=== PATIENT | female | born 1945 | race Asian ===

== ENCOUNTER 2021-04-20 11:14 | Inpatient (IN) | payer OTHER ==
[~2021-04-20] VITALS: Ht 154.9 cm; Wt 70.3 kg
--- NOTE | 2021-04-20 11:14 | NUR ---
PT BIBRA 41 FROM HOME C/O L HIP PAIN S/P GLF. PT IS AAOX4 BAHAMIAN SPEAKING ONLY, NOT IN RESPIRATORY DISTRESS, HOOKED TO LICENSED CERTIFIED ORTHOTIST, KEPT RESTED AND COMFORTABLE. WILL CONTINUE TO MONITOR.
--- NOTE | 2021-04-20 11:21 | NUR ---
SEEN AND EXAMINED BY .
--- NOTE | 2021-04-20 11:37 | NUR ---
ER PHLEB AT BEDSIDE FOR BLOOD DRAW.
[2021-04-20] MEDS ORDERED: MORPHINE SULFATE INJ 2 MG/ML DISP.SYRIN ONE ×2 (11:38→17:30)
[2021-04-20] MEDS ORDERED: ONDANSETRON HCL/PF 4 MG/2 ML VIAL ONE (11:38)
[2021-04-20] MEDS ORDERED: LOSA25TA27 PO (11:39)
[2021-04-20] MEDS ORDERED: CITA10TA9 PO (11:39)
[2021-04-20] MEDS ORDERED: ASPI-1420 PO (11:39)
[2021-04-20] MEDS ORDERED: INSU100I26 SQ (11:39)
[2021-04-20] MEDS ORDERED: METF-442 PO (11:39)
[2021-04-20] MEDS ORDERED: DICL100G34 TP (11:39)
[2021-04-20] MEDS ORDERED: SITA100T PO (11:39)
[2021-04-20] MEDS ORDERED: PIOG30TA10 PO (11:39)
[2021-04-20] MEDS ORDERED: ATOR10TA PO (11:39)
[2021-04-20] MEDS ORDERED: MELO-107 PO (11:39)
[2021-04-20 11:42] LABS: BASOPHILS % (AUTO) 0.5 % (0.0-2.0); EOSINOPHILS % (AUTO) 1.6 % (0.0-6.0); HEMATOCRIT 37 % (33-45); LYMPHOCYTES # (AUTO) 1.1 K/uL (0.8-4.8); LYMPHOCYTES % (AUTO) 14.3 % (20.0-44.0); MEAN CORPUSCULAR HGB CONC 33 g/dl (31.0-36.0); MEAN CORPUSCULAR VOLUME 85 fL (82-100); MONOCYTES # (AUTO) 0.6 K/uL (0.1-1.30); MONOCYTES % (AUTO) 7.7 % (2.0-12.0); NEUTROPHILS # (AUTO) 5.9 K/uL (1.8-8.9); NEUTROPHILS % (AUTO) 75.9 % (43.0-81.0); PLATELET COUNT (AUTO) 160 K/uL (150-450); RED BLOOD CELL COUNT(AUTO) 4.31 MIL/uL (4.0-5.2); WHITE BLOOD COUNT (AUTO) 7.7 K/uL (4.3-11.0)
[2021-04-20 11:59] LABS: CALCIUM, SERUM 9.1 mg/dL (8.5-10.1); CARBON DIOXIDE 26 mmol/L (21-32); CHLORIDE 105 mmol/L (98-107); CREATININE 1.3 mg/dL (0.6-1.3); GLUCOSE 244 mg/dL (74-106); POTASSIUM 3.7 mmol/L (3.5-5.1); SODIUM SERUM 141 mmol/L (136-145); UREA NITROGEN, BLOOD 28 mg/dL (7-18)
[2021-04-20] MEDS ORDERED: MORPHINE SULFATE INJ 2 MG/ML DISP.SYRIN IV ONE ×2 (12:00→17:30)
[2021-04-20] MEDS ORDERED: ONDANSETRON HCL/PF 4 MG/2 ML VIAL IV ONE (12:00)
--- NOTE | 2021-04-20 12:00 | NUR ---
OPTICAL INSTRUMENT REPAIRER AT BEDSIDE FOR XRAY.
--- NOTE | 2021-04-20 15:06 | NUR ---
DARREN ESPINAL FOR CONSULT.
--- NOTE | 2021-04-20 15:50 | NUR ---
SECOND PAGE FOR MELONY JOYCE, AWAITING CALL BACK FROM PROVIDER.
--- NOTE | 2021-04-20 16:56 | NUR ---
THIRD PAGE FOR MELONY JOYCE.
--- NOTE | 2021-04-20 16:58 | NUR ---
SPOKE TO MELONY JOYCE, TEXTING EUSEBIO JOYCE TO CALL US BACK.
--- NOTE | 2021-04-20 17:04 | NUR ---
CALLED NURSING SUP FOR M/S BED.
--- NOTE | 2021-04-20 17:25 | NUR ---
NURSING SUP GAVE M/S BED 325-1. NURSE NAME RAN.
--- NOTE | 2021-04-20 17:29 | NUR ---
REPORT GIVEN TO KETTY JEFFERY FOR CATRACHITO.
[2021-04-20] MEDS ORDERED: DEXTROSE 50%-WATER 50 ML DISP.SYRIN IV PRN (17:30)
[2021-04-20] MEDS ORDERED: Z GUARD REMEDY 2 OZ OINT TP PRN (17:30)
[2021-04-20] MEDS ORDERED: MAGNESIUM HYDROXIDE 30 ML UDC PO PRN (17:30)
[2021-04-20] MEDS ORDERED: ONDANSETRON HCL/PF 4 MG/2 ML VIAL IVP PRN (17:30)
[2021-04-20] MEDS ORDERED: MAG HYDROX/AL HYDROX/SIMETH 30 ML UDC PO PRN (17:30)
[2021-04-20] MEDS ORDERED: ACETAMINOPHEN 325 MG TABLET PO PRN (17:30)
[2021-04-20] MEDS ORDERED: ZOLPIDEM TARTRATE 5 MG TABLET PO PRN (17:30)
[2021-04-20] MEDS: ENOXAPARIN SODIUM 30 MG/0.3 ML DISP.SYRIN SQ SCH (18:00)
--- NOTE | 2021-04-20 18:54 | NUR ---
RN MS NOTES RECEIVED PT FROM E.R. STAFF VIA RACHEL, PT IS AWAKE, ALERT AND ORIENTED, CITIZEN OF [place] SPEAKING BUT UNDERSTANDS SIMPLE [place], NO SIGN OF PAIN, NOT IN DISTRESS, TOLERATES ROOM AIR, ASSISTED TO BED, MADE COMFORTABLE, ROOM SET UP ORIENTATION PROVIDED TO PT, FAMILY CAME AND VISITED PT, KEPT COMFORTABLE, VITALS TAKEN AND RECORDED.
[2021-04-20 18:56] VITALS: BP 124/75
--- NOTE | 2021-04-20 19:00 | NUR ---
RN MS NOTES LOVENOX NOT GIVEN, ANTICIPATING POSSIBLE SURGERY IN AM.
[2021-04-20] MEDS: BLOOD SUGAR DIAGNOSTIC 1 EACH STRIP IN SCH ×2 (19:13→22:16)
[2021-04-20] MEDS: METFORMIN 850 MG TABLET PO SCH (19:13)
--- NOTE | 2021-04-20 19:30 | NUR ---
MS/RN ADMITTING NOTE PATIENT ADMITTED AT APPROX. 1845 WITH DX OF BILATERAL SACRAL FRACTURES. PATIENT IS ALERT AND ORIENTED X 4. PRIMARILY SAMOAN SPEAKING BUT UNDERSTANDS SOME HUNGARIAN. FAMILY CURRENTLY AT BEDSIDE. PATIENT IS ON ROOM AIR WITH NO S/SX OF RESPIRATORY DISTRESS NOTED. NO C/O PAIN AT THIS TIME. IV ACCESS TO RIGHT FOREARM #20G INTACT, PATENT AND SALINE LOCKED. PATIENT IS ON CCHO DIET WITH NO S/SX OF ASPIRATION NOTED. JONES CATHETER IN PLACE DRAINING CLEAR, YELLOW URINE TO GRAVITY. SKIN CHECK PERFORMED ON ADMISSION WITH NO SKIN ISSUES NOTED. PATIENT ORIENTED TO ROOM, CALL LIGHT AND UNIT. CALL LIGHT WITHIN REACH. ASPIRATION, FALL AND SAFETY PRECAUTIONS MAINTAINED. WILL CONTINUE TO MONITOR.
[2021-04-20 20:00] VITALS: BP 123/77
[2021-04-20] MEDS: HYDROCODONE/APAP 5/325MG TABLET PO PRN (20:04)
[2021-04-20] MEDS: ATORVASTATIN 10 MG TABLET PO SCH (22:16)
[2021-04-20] MEDS: INSULIN REGULAR, HUMAN 100 UNIT/ML 3 ML VIAL SQ PRN (22:22)
[2021-04-21] MEDS: HYDROCODONE/APAP 5/325MG TABLET PO PRN ×3 (01:17→11:51)
[2021-04-21 06:11] LABS: BASOPHILS % (AUTO) 0.3 % (0.0-2.0); EOSINOPHILS % (AUTO) 4.7 % (0.0-6.0); HEMATOCRIT 34 % (33-45); HEMOGLOBIN 11.1 g/dL (11.5-14.8); LYMPHOCYTES # (AUTO) 1.7 K/uL (0.8-4.8); MEAN CORPUSCULAR HGB CONC 33 g/dl (31.0-36.0); MEAN CORPUSCULAR VOLUME 85 fL (82-100); MONOCYTES # (AUTO) 0.8 K/uL (0.1-1.30); MONOCYTES % (AUTO) 11.7 % (2.0-12.0); NEUTROPHILS # (AUTO) 4.2 K/uL (1.8-8.9); NEUTROPHILS % (AUTO) 59.3 % (43.0-81.0); PLATELET COUNT (AUTO) 162 K/uL (150-450); RED BLOOD CELL COUNT(AUTO) 3.99 MIL/uL (4.0-5.2)
[2021-04-21 06:49] LABS: CALCIUM, SERUM 8.8 mg/dL (8.5-10.1); CARBON DIOXIDE 25 mmol/L (21-32); CHLORIDE 104 mmol/L (98-107); CREATININE 1.5 mg/dL (0.6-1.3); GLUCOSE 133 mg/dL (74-106); MAGNESIUM 1.9 mg/dL (1.8-2.4); PHOSPHORUS 5.5 mg/dL (2.5-4.9); POTASSIUM 3.6 mmol/L (3.5-5.1); SODIUM SERUM 139 mmol/L (136-145); UREA NITROGEN, BLOOD 44 mg/dL (7-18)
[2021-04-21 06:53] LABS: CHOLESTEROL 139 mg/dL (<200); HDL CHOLESTEROL 43 mg/dL (40-60); LDL 76 mg/dL (0-99); THYROID STIMULATING HORMONE 3.138 uIU/mL (0.358-3.74); TRIGLYCERIDES 118 mg/dL (30-150)
[2021-04-21] MEDS: INSULIN REGULAR, HUMAN 100 UNIT/ML 3 ML VIAL SQ PRN ×2 (07:03→21:21)
[2021-04-21] MEDS: BLOOD SUGAR DIAGNOSTIC 1 EACH STRIP IN SCH ×4 (07:06→21:18)
[2021-04-21 08:00] VITALS: BP 100/63
[2021-04-21] MEDS: ASPIRIN EC 81 MG TABLET.DR PO SCH (08:43)
[2021-04-21] MEDS: CITALOPRAM HYDROBROMIDE 10 MG TABLET PO SCH (08:43)
[2021-04-21] MEDS: PANTOPRAZOLE 40 MG TABLET.DR PO SCH (08:43)
[2021-04-21] MEDS: PIOGLITAZONE HCL 15 MG TABLET PO SCH (08:44)
[2021-04-21] MEDS: METFORMIN 850 MG TABLET PO SCH ×2 (08:44→16:52)
[2021-04-21] MEDS: LINAGLIPTIN 5 MG TABLET PO SCH (08:44)
[2021-04-21] MEDS: INSULIN GLARGINE, 100 UNIT/ML CARTRIDGE SQ SCH (08:51)
[2021-04-21] MEDS ORDERED: LOSARTAN POTASSIUM 25 MG TABLET PO SCH (09:00)
--- NOTE | 2021-04-21 19:30 | NUR ---
RN NOTES PATIENT RECEIVED ALERT AND ORIENTED X 4. PRIMARILY ANGUILLAN SPEAKING BUT UNDERSTANDS SOME ESTONIAN. FAMILY CURRENTLY AT BEDSIDE. PATIENT IS ON ROOM AIR WITH NO S/SX OF RESPIRATORY DISTRESS NOTED. NO C/O PAIN AT THIS TIME. IV ACCESS TO RIGHT FOREARM #20G INTACT, PATENT AND SALINE LOCKED. JONES CATHETER IN PLACE DRAINING CLEAR, YELLOW URINE TO GRAVITY.CALL LIGHT WITHIN REACH. ASPIRATION, FALL AND SAFETY PRECAUTIONS MAINTAINED. WILL CONTINUE TO MONITOR.
[2021-04-21 20:00] VITALS: BP 116/73
[2021-04-21] MEDS: ENOXAPARIN SODIUM 30 MG/0.3 ML DISP.SYRIN SQ SCH ×2 (21:00→21:11)
[2021-04-21] MEDS: ATORVASTATIN 10 MG TABLET PO SCH (21:08)
[2021-04-22] MEDS: IV 1/2NS 1000 ML 1,000 ML IV PRN ×2 (02:22→18:24)
[2021-04-22] MEDS: BLOOD SUGAR DIAGNOSTIC 1 EACH STRIP IN SCH ×4 (06:40→21:58)
[2021-04-22] MEDS: INSULIN REGULAR, HUMAN 100 UNIT/ML 3 ML VIAL SQ PRN ×3 (06:41→22:02)
--- NOTE | 2021-04-22 06:48 | NUR ---
RN NOTES PATIENT ALERT AND ORIENTED X 4. PRIMARILY ANGUILLAN SPEAKING BUT UNDERSTANDS SOME SAMI. FAMILY CURRENTLY AT BEDSIDE. PATIENT IS ON ROOM AIR WITH NO S/SX OF RESPIRATORY DISTRESS NOTED. NO C/O PAIN AT THIS TIME. IV ACCESS TO RIGHT FOREARM #20G INTACT, PATENT AND SALINE LOCKED. JONES CATHETER IN PLACE DRAINING CLEAR, YELLOW URINE TO GRAVITY.CALL LIGHT WITHIN REACH. ASPIRATION, FALL AND SAFETY PRECAUTIONS MAINTAINED. WILL ENDORSE CARE O DAY SHIFT NURSE.
--- NOTE | 2021-04-22 07:43 | NUR ---
MS/RN OPENING NOTES RECEIVED PATIENT IN BED, ALERT AND ORIENTED X 4. PRIMARILY AFGHAN SPEAKING BUT UNDERSTANDS SOME SYRIAC. STABLE ON ROOM AIR WITH NO S/SX OF RESPIRATORY DISTRESS NOTED. NO C/O PAIN AT THIS TIME. IV ACCESS TO RIGHT FOREARM #20G INTACT WITH 1/2 NS RUNNING AT 75ML/HR. JONES CATHETER IN PLACE DRAINING CLEAR, YELLOW URINE TO GRAVITY. CALL LIGHT WITHIN REACH. ASPIRATION, FALL AND SAFETY PRECAUTIONS MAINTAINED. WILL CONTINUE TO MONITOR PATIENT.
[2021-04-22 08:00] VITALS: BP 100/46
[2021-04-22] MEDS: PIOGLITAZONE HCL 15 MG TABLET PO SCH (08:53)
[2021-04-22] MEDS: LINAGLIPTIN 5 MG TABLET PO SCH (08:54)
[2021-04-22] MEDS: ASPIRIN EC 81 MG TABLET.DR PO SCH (08:54)
[2021-04-22] MEDS: CITALOPRAM HYDROBROMIDE 10 MG TABLET PO SCH (08:54)
[2021-04-22] MEDS: PANTOPRAZOLE 40 MG TABLET.DR PO SCH (08:54)
[2021-04-22] MEDS: HYDROCODONE/APAP 5/325MG TABLET PO PRN ×2 (08:55→19:21)
[2021-04-22] MEDS ORDERED: METFORMIN 500 MG TABLET PO SCH (09:00)
[2021-04-22] MEDS: INSULIN GLARGINE, 100 UNIT/ML CARTRIDGE SQ SCH (09:00)
--- NOTE | 2021-04-22 09:03 | NUR ---
MS/RN NOTES- METFORMIN CALLED PHARMACY. METFORMIN STOCK ON HAND IS 850MG, PATIENT NEEDS 1,000MG. PER PHARMACY, THEY WILL SEND A METFORMIN 500MG/TAB IN THE UNIT. RN WILL RETURN THE PREVIOUS 850MG THAT WAS TAKEN FROM THE [facility] AND WILL WAIT FOR THE 500MG DOSE.
[2021-04-22] MEDS ORDERED: METFORMIN 500 MG TABLET ONE (09:10)
--- NOTE | 2021-04-22 15:06 | NUR ---
MS/RN NOTES URINE SPECIMEN COLLECTED VIA JNOES CATHETER AND SPECIMEN PLACED ON THE FRIDGE. CALLED LABORATORY THAT SPECIMEN IS READY FOR COLLECTION. LAB SAID MEASUREMENT SUPERINTENDENT WILL COME BY AND PICK IT UP.
[2021-04-22 16:22] LABS: BILIRUBIN,URINE NEGATIVE (NEGATIVE); COLOR,URINE YELLOW (YELLOW); LEUKOCYTE ESTERASE ,URINE TRACE (NEGATIVE); NITRITE, URINE NEGATIVE (NEGATIVE); PROTEIN,URINE NEGATIVE (NEGATIVE); UGLUCOSE NEGATIVE (NEGATIVE); UROBILINOGEN,URINE 0.2 EU/dL (0.2)
[2021-04-22 16:35] LABS: RBC,URINE 21-50 /HPF (0-2)
[2021-04-22 16:36] LABS: BACTERIA,URINE RARE /HPF (None Seen); MUCUS,URINE Few /LPF (None Seen); SQUAMOUS EPITHELIAL CELL,UR 0-2 /HPF (None Seen)
[2021-04-22 17:11] LABS: CREATININE, URINE 49.7 MG/DL (30.0-125.0)
--- NOTE | 2021-04-22 18:53 | NUR ---
MS/RN CLOSING NOTES PATIENT IN BED, ALERT AND ORIENTED X 4. PRIMARILY MACEDONIAN SPEAKING BUT UNDERSTANDS SOME SLOVAK. DAUGHTER AT BEDSIDE. STABLE ON ROOM AIR WITH NO S/SX OF RESPIRATORY DISTRESS NOTED. NO C/O PAIN AT THIS TIME. IV ACCESS TO RIGHT FOREARM #20G INTACT WITH 1/2 NS RUNNING AT 75ML/HR. JONES CATHETER IN PLACE DRAINING CLEAR, YELLOW URINE TO GRAVITY. CALL LIGHT WITHIN REACH. ASPIRATION, FALL AND SAFETY PRECAUTIONS MAINTAINED. WILL ENDORSE TO THE NEXT SHIFT FOR CATRACHITO.
--- NOTE | 2021-04-22 19:29 | NUR ---
RN NOTES PATIENT IN BED, ALERT AND ORIENTED X 4. PRIMARILY BELARUSIAN SPEAKING BUT UNDERSTANDS SOME JAPANESE. DAUGHTER AT BEDSIDE. STABLE ON ROOM AIR WITH NO S/SX OF RESPIRATORY DISTRESS NOTED. CO REPORTING 7/10 PAIN PRN NORCO 5-325 MG GIVEN WILL REASSES PAIN LEVEL.. IV ACCESS TO RIGHT FOREARM #20G INTACT WITH 1/2 NS RUNNING AT 75ML/HR. JONES CATHETER IN PLACE DRAINING CLEAR, YELLOW URINE TO GRAVITY. CALL LIGHT WITHIN REACH. ASPIRATION, FALL AND SAFETY PRECAUTIONS MAINTAINED. WILL CONTINUE TO MONITOR.
[2021-04-22 20:20] VITALS: BP 150/78
[2021-04-22] MEDS: ATORVASTATIN 10 MG TABLET PO SCH (21:50)
[2021-04-22] MEDS: ENOXAPARIN SODIUM 30 MG/0.3 ML DISP.SYRIN SQ SCH (21:51)
[2021-04-23] MEDS: IV 1/2NS 1000 ML 1,000 ML IV PRN (04:13)
[2021-04-23] MEDS: HYDROCODONE/APAP 5/325MG TABLET PO PRN ×3 (04:43→17:33)
--- NOTE | 2021-04-23 05:01 | NUR ---
RN NOTES PT STATED SHE WANTED PAIN MEDICINE BUT ONCE AT BEDSIDE PT CHANGED HER MIND.MEDICATION OPENED OUT OF PACKED CANNOT BE RETURNED TO [facility] WITH Johanna HDEZ. WILL CONTINUE TO MONITOR.
[2021-04-23] MEDS: BLOOD SUGAR DIAGNOSTIC 1 EACH STRIP IN SCH ×2 (06:45→11:59)
--- NOTE | 2021-04-23 06:59 | NUR ---
RN NOTES PATIENT IN BED, ALERT AND ORIENTED X 4. PRIMARILY COOK ISLANDER SPEAKING BUT UNDERSTANDS SOME ITALIAN. DAUGHTER AT BEDSIDE. STABLE ON ROOM AIR WITH NO S/SX OF RESPIRATORY DISTRESS NOTED.IV ACCESS TO RIGHT FOREARM #20G INTACT WITH 1/2 NS RUNNING AT 75ML/HR. JONES CATHETER IN PLACE DRAINING CLEAR, YELLOW URINE TO GRAVITY. CALL LIGHT WITHIN REACH. ASPIRATION, FALL AND SAFETY PRECAUTIONS MAINTAINED. WILL ENDORSE CARE TO DAY SHIFT NURSE.
[2021-04-23 08:00] VITALS: BP 142/82
--- NOTE | 2021-04-23 08:00 | NUR ---
m/s account resolution expert: notes received pt in bed awake, a/ox3; afghan speaking only with little eritrean. no c/o pain at this time. p.t. tx in progress. will continue to monitor.
[2021-04-23] MEDS: PIOGLITAZONE HCL 15 MG TABLET PO SCH (08:07)
[2021-04-23] MEDS: CITALOPRAM HYDROBROMIDE 10 MG TABLET PO SCH (08:07)
[2021-04-23] MEDS: ASPIRIN EC 81 MG TABLET.DR PO SCH (08:07)
[2021-04-23] MEDS: LINAGLIPTIN 5 MG TABLET PO SCH (08:07)
[2021-04-23] MEDS: PANTOPRAZOLE 40 MG TABLET.DR PO SCH (08:07)
[2021-04-23] MEDS: INSULIN GLARGINE, 100 UNIT/ML CARTRIDGE SQ SCH (09:04)
--- NOTE | 2021-04-23 10:00 | NUR ---
m/s eight arm operator: notes family visiting and aware for d'c to snf today. jimbo lyle spoke to [place] over the phone and updated d'c planning. manas (dtr) in agreement. will continue to monitor.
[2021-04-23] MEDS: INSULIN REGULAR, HUMAN 100 UNIT/ML 3 ML VIAL SQ PRN (11:59)
[2021-04-23 13:15] LABS: CALCIUM, SERUM 8.8 mg/dL (8.5-10.1); CARBON DIOXIDE 27 mmol/L (21-32); CHLORIDE 104 mmol/L (98-107); CREATININE 1.4 mg/dL (0.6-1.3); GLUCOSE 162 mg/dL (74-106); POTASSIUM 4.4 mmol/L (3.5-5.1); SODIUM SERUM 140 mmol/L (136-145); UREA NITROGEN, BLOOD 27 mg/dL (7-18)
--- NOTE | 2021-04-23 14:15 | NUR ---
m/s developer automatic: notes son here and made aware re: d'c to snf at 1700 today; also pt aware. placed a call to [facility] (dtr), spoke to her over the phone and she aware of d'c to snf at 1700 to [facility].
--- NOTE | 2021-04-23 16:45 | NUR ---
m/s knock up assembler: notes report given to lori (rn) from [facility] for continuity of care.
--- NOTE | 2021-04-23 17:30 | NUR ---
m/s tc operator: notes [facility] here and report given to one of the crew. pt c/o 03/06 sacral pain, medicated with norco 1 tab po as ordered.
--- NOTE | 2021-04-23 17:35 | NUR ---
m/s operator bearer systems: notes h/l removed with tip intact with no bleeding noted.
--- NOTE | 2021-04-23 17:45 | NUR ---
m/s concession supervisor: notes discharge to snf in stable condition accompanied by 2 emt via [facility]. pt has no valuable/belongings. family brought it back home per pt.
== END 2021-04-23 17:46 | DRG 552 ==
LOC: ER 11:16 → MED 17:28
DX: S32.10XA Unspecified fracture of sacrum, initial encounter for closed fracture (principal); W18.30XA Fall on same level, unspecified, initial encounter; Y92.9 Unspecified place or not applicable; Y99.9 Unspecified external cause status; Z20.822 Contact with and (suspected) exposure to COVID-19; E11.22 Type 2 diabetes mellitus with diabetic chronic kidney disease; I12.9 Hypertensive chronic kidney disease with stage 1 through stage 4 chronic kidney disease, or unspecified chronic kidney disease; Z79.4 Long term (current) use of insulin; Z79.82 Long term (current) use of aspirin; Z79.899 Other long term (current) drug therapy; E11.65 Type 2 diabetes mellitus with hyperglycemia; E78.5 Hyperlipidemia, unspecified; I70.0 Atherosclerosis of aorta; M19.90 Unspecified osteoarthritis, unspecified site; N18.30 Chronic kidney disease, stage 3 unspecified
CPT/HCPCS: 36415; 71045-TC; 72192-TC; 73502; 80048-TC; 80061-TC; 81001; 82570-TC; 82962-TC; 83735-TC; 84100-TC; 84300-TC; 84443-TC; 84484-TC; 85025-TC; 85730-TC; 87081-TC; 93307-TC; 97112-TC; 97530-TC; C9803; G0378; J1650; J1815; J2270; J2405; J3490

== ENCOUNTER 2022-05-16 12:25 | Emergency (ER) | payer OTHER ==
[~2022-05-16] VITALS: Ht 152.4 cm; Wt 58.1 kg
[~2022-05-16 12:25] MED LIST: ASPI-1420 PO; ATOR10TA PO; CITA10TA9 PO; DICL100G34 TP; INSU100I26 SQ; LOSA25TA27 PO; MELO-107 PO; METF-442 PO; PIOG30TA10 PO; SITA100T PO
--- NOTE | 2022-05-16 12:31 | NUR ---
non destructive evaluation specialist called 911; she witnessed a syncopal event while she was given a shower this am; BS - 171, EKG done - NSR. attached to monitor, no resp distress noted. awaiting md orders.
[2022-05-16] MEDS ORDERED: IV NS 0.9% 500 ML BAG IV ONE (13:00)
[2022-05-16 13:17] LABS: BASOPHILS % (AUTO) 0.5 % (0.0-2.0); EOSINOPHILS % (AUTO) 2.3 % (0.0-6.0); HEMATOCRIT 40 % (33-45); HEMOGLOBIN 13.1 g/dL (11.5-14.8); LYMPHOCYTES % (AUTO) 35.1 % (20.0-44.0); MEAN CORPUSCULAR HGB CONC 33 g/dl (31.0-36.0); MEAN CORPUSCULAR VOLUME 85 fL (82-100); MONOCYTES # (AUTO) 0.4 K/uL (0.1-1.30); MONOCYTES % (AUTO) 6.5 % (2.0-12.0); NEUTROPHILS # (AUTO) 3.2 K/uL (1.8-8.9); NEUTROPHILS % (AUTO) 55.6 % (43.0-81.0); PLATELET COUNT (AUTO) 142 K/uL (150-450); RED BLOOD CELL COUNT(AUTO) 4.76 MIL/uL (4.0-5.2); WHITE BLOOD COUNT (AUTO) 5.8 K/uL (4.3-11.0)
[2022-05-16 13:32] LABS: ALANINE AMINOTRANSFERASE 16 U/L (12-78); ALBUMIN 3.2 g/dL (3.4-5.0); ALKALINE PHOSPHATASE 67 U/L (46-116); ASPARTATE AMINOTRANSFERASE 16 U/L (15-37); BILIRUBIN,DIRECT 0.1 mg/dL (0.0-0.2); BILIRUBIN,TOTAL 0.6 mg/dL (0.2-1.0); CALCIUM, SERUM 9.7 mg/dL (8.5-10.1); CARBON DIOXIDE 25 mmol/L (21-32); CHLORIDE 102 mmol/L (98-107); CREATININE 1.2 mg/dL (0.6-1.3); GLUCOSE 132 mg/dL (74-106); POTASSIUM 3.8 mmol/L (3.5-5.1); SODIUM SERUM 134 mmol/L (136-145); UREA NITROGEN, BLOOD 21 mg/dL (7-18)
--- NOTE | 2022-05-16 13:55 | NUR ---
COVID TEST COLLECTED AND SENT
--- NOTE | 2022-05-16 14:21 | NUR ---
Patient discharged to home in stable condition. Written and verbal after care instructions given. Patient verbalizes understanding of instruction.IV removed. Catheter intact and site benign. Pressure and 4x4 applied to site. No bleeding noted.
[2022-05-16 14:22] VITALS: BP 146/99
== END 2022-05-16 14:22 | disposition home or self-care (01) ==
LOC: ER 12:39
DX: R55 Syncope and collapse (principal); I10 Essential (primary) hypertension; E11.9 Type 2 diabetes mellitus without complications; Z79.899 Other long term (current) drug therapy
CPT/HCPCS: 36415; 71045-TC; 80048-TC; 80076-TC; 84484-TC; 85025-TC; J7040